=== PATIENT | female | born 1985 | race Caucasian/White ===

== ENCOUNTER 2017-02-11 22:41 | Emergency (ER) | payer OTHER ==
[~2017-02-11] VITALS: Ht 167.6 cm; Wt 141.1 kg
[2017-02-12 01:16] LABS: BASOPHIL % 0.4 % (0-2); PLATELET COUNT 340 x10^3mcL (130-400)
[2017-02-12 01:18] LABS: RED CELL DISTRIBUTION WIDTH 14.9 % (11.5-14.5)
[2017-02-12 01:31] LABS: CALCIUM 8.3 mg/dL (8.5-10.1); CARBON DIOXIDE 25.5 mmol/L (21-32); CHLORIDE SERUM 105 mmol/L (98-107); CREATININE SERUM 0.6 mg/dL (0.6-1.0); GFR1 > 60 mL/min; GLUCOSE SERUM 109 mg/dL (74-106); POTASSIUM SERUM 3.6 mmol/L (3.5-5.1); SODIUM SERUM 139 mmol/L (136-145)
[2017-02-12 01:36] LABS: ALBUMIN 3.4 g/dL (3.4-5.0); ALKALINE PHOSPHATASE 93 U/L (46-116); ALT/SGPT 37 U/L (14-59); AST/SGOT 23 U/L (15-37); BILIRUBIN TOTAL 0.5 mg/dL (0.20-1.00); LIPASE 89 IU/L (73-393); TOTAL PROTEIN, SERUM 7.5 g/dL (6.4-8.2)
[2017-02-12 04:11] VITALS: BP 108/83
== END 2017-02-12 04:12 | disposition home or self-care (01) ==
LOC: ED 22:41
PROVIDERS: Emergency Medicine
DX: R10.11 Right upper quadrant pain (principal)
CPT/HCPCS: J2270; J2405; J7030

== ENCOUNTER 2017-05-07 22:01 | Emergency (ER) | payer OTHER ==
[2017-05-07 22:52] VITALS: BP 153/94
== END 2017-05-07 22:52 | disposition home or self-care (01) ==
LOC: ED 22:01
DX: L50.9 Urticaria, unspecified (principal); Z90.49 Acquired absence of other specified parts of digestive tract

== ENCOUNTER 2017-05-20 05:54 | Emergency (ER) | payer OTHER ==
[~2017-05-20] VITALS: Ht 170.2 cm; Wt 139.2 kg
[2017-05-20 05:58] VITALS: Ht 170.2 cm; Wt 139.2 kg
[2017-05-20 07:23] VITALS: BP 140/95
== END 2017-05-20 07:23 | disposition home or self-care (01) ==
LOC: ED 05:54
DX: J20.9 Acute bronchitis, unspecified (principal); Z88.6 Allergy status to analgesic agent; Z90.49 Acquired absence of other specified parts of digestive tract
CPT/HCPCS: J7613; J7644

== ENCOUNTER 2017-07-15 09:15 | Emergency (ER) | payer OTHER ==
[~2017-07-15] VITALS: Ht 170.2 cm; Wt 137.0 kg
[2017-07-15 09:28] VITALS: BP 142/75; Ht 170.2 cm; Wt 137.0 kg
== END 2017-07-15 10:35 | disposition home or self-care (01) ==
LOC: ED 09:15
DX: S93.601A Unspecified sprain of right foot, initial encounter (principal); Z88.8 Allergy status to other drugs, medicaments and biological substances; X58.XXXA Exposure to other specified factors, initial encounter; Y93.89 Activity, other specified; Y92.89 Other specified places as the place of occurrence of the external cause; Y99.8 Other external cause status

== ENCOUNTER 2017-09-28 23:26 | Emergency (ER) | payer OTHER ==
[~2017-09-28] VITALS: Ht 170.2 cm; Wt 137.9 kg
[2017-09-28 23:35] VITALS: Ht 170.2 cm; Wt 137.9 kg
[2017-09-29 00:15] VITALS: BP 147/89
== END 2017-09-29 00:15 | disposition home or self-care (01) ==
LOC: ED 23:26
DX: M75.102 Unspecified rotator cuff tear or rupture of left shoulder, not specified as traumatic (principal); R03.0 Elevated blood-pressure reading, without diagnosis of hypertension; M54.2 Cervicalgia; Z88.5 Allergy status to narcotic agent; Z90.49 Acquired absence of other specified parts of digestive tract
CPT/HCPCS: J1885

== ENCOUNTER 2017-11-09 06:18 | Emergency (ER) | payer OTHER ==
[~2017-11-09] VITALS: Ht 170.2 cm; Wt 137.9 kg
[2017-11-09 06:28] VITALS: Ht 170.2 cm; Wt 137.9 kg
[2017-11-09 08:32] VITALS: BP 136/84
== END 2017-11-09 08:32 | disposition home or self-care (01) ==
LOC: ED 06:18
DX: J02.0 Streptococcal pharyngitis (principal); Z88.5 Allergy status to narcotic agent; Z90.49 Acquired absence of other specified parts of digestive tract
CPT/HCPCS: J0696